=== PATIENT | female | born 2000 | race African-American/Black ===

== ENCOUNTER 2024-06-07 10:35 | Emergency (ER) | payer MEDICAID ==
[~2024-06-07] VITALS: Ht 160 cm; Wt 49.9 kg
[2024-06-07 10:37] VITALS: BP 123/71; PULSE 85; RESP 16; TEMP 98; O2SAT 98
[2024-06-07] MEDS: MIDAZOLAM 2 MG/2 ML VIAL IM ONE (12:24)
[2024-06-07] MEDS: OLANZapine 10 MG VIAL IM ONE (12:24)
[2024-06-07] MEDS: OLANZapine 5 MG ODT SL ONE (12:33)
[2024-06-07] MEDS: LORazepam 1 MG TAB PO ONE (12:33)
[2024-06-07 14:03] LABS: AMPHETAMINE, URINE POSITIVE ng/ml (NEG <=1000); BARBITURATE, URINE NEGATIVE ng/ml (NEG <=200); BENZODIAZEPINE, URINE NEGATIVE ng/mL (NEG <=200); CANNABINOID, URINE POSITIVE ng/mL (NEG <=50); COCAINE, URINE NEGATIVE ng/mL (NEG <=300); OPIATE, URINE NEGATIVE ng/mL (NEG <=2000); PHENCYCLIDINE SCREEN,URINE NEGATIVE ng/mL (NEG <=25)
[2024-06-07] MEDS: ZIPRASIDONE MESYLATE 20 MG/ML VIAL IM ONE (15:08)
[2024-06-07 15:13] LABS: BASOPHILS % (AUTO) 0.5 % (0.0-2.0); EOSINOPHILS # (AUTO) 0.1 K/uL (0-0.4); EOSINOPHILS % (AUTO) 3.7 % (0.0-4.0); HEMATOCRIT 36.5 % (36-48); HEMOGLOBIN 11.8 g/dL (12.0-16.0); LYMPHOCYTES # (AUTO) 1.7 K/uL (2.5-16.5); LYMPHOCYTES % (AUTO) 43.9 % (20.5-51.1); MEAN CORPUSCULAR HEMOGLOBIN 28 pg (27-31); MEAN CORPUSCULAR HGB CONC 32 g/dL (33-37); MEAN CORPUSCULAR VOLUME 86.5 fL (80-94); MONOCYTES # (AUTO) 0.5 K/uL (0.8-1.0); MONOCYTES % (AUTO) 12.9 % (1.7-9.3); NEUTROPHILS # (AUTO) 1.5 K/uL (1.8-7.7); PLATELET COUNT (AUTO) 241 K/uL (140-450); RED BLOOD CELL COUNT(AUTO) 4.22 MIL/uL (4.20-5.40); RED CELL DISTRIBUTION WIDTH 18.3 % (11.6-13.7); WHITE BLOOD COUNT (AUTO) 3.9 K/uL (4.8-10.8)
[2024-06-07 15:24] LABS: ANION GAP 13.7 (8-16); CALCIUM 8.8 mg/dL (8.5-10.1); CARBON DIOXIDE 25.8 mmol/L (21-32); CREATININE 0.9 mg/dL (0.6-1.3); POTASSIUM 3.5 mmol/L (3.5-5.1)
[2024-06-07 15:30] LABS: ALCOHOL, BLOOD < 3 mg/dL (<10)
[2024-06-07 15:31] VITALS: O2SAT 98
[2024-06-07 15:32] LABS: SALICYLATE < 2.8 mg/dL (2.8-20.0)
[2024-06-07 17:42] VITALS: O2SAT 98
[2024-06-07 20:07] VITALS: O2SAT 98
[2024-06-08 05:04] VITALS: O2SAT 98
[2024-06-08 07:22] VITALS: O2SAT 98
[2024-06-08] MEDS: OLANZapine 5 MG ODT PO SCH (13:37)
[2024-06-08 15:29] VITALS: O2SAT 100
[2024-06-08 16:42] VITALS: BP 123/62; PULSE 81; RESP 17; TEMP 98.2; O2SAT 100
== END 2024-06-08 16:42 ==
LOC: MED 10:35
DX: F12.90 Cannabis use, unspecified, uncomplicated (principal); R45.851 Suicidal ideations
CPT/HCPCS: 36415; 80048; 80305; 81025; 84702; 85025; 99285; G0480; G0482; J3486